=== PATIENT | male | born 1955 | race Caucasian/White ===

== ENCOUNTER → 2018-02-13 | Outpatient (CLI) | payer BC, MEDICARE ==
[~2018-02-13] MED LIST: AMBI5TAB PO; CLON1 PO; METH750T2 PO; PROP10TA26 PO
--- NOTE | 2018-02-14 07:43 | MG ---
cc: Allen Marquez MD EEG RECORD NUMBER [id number] INTERPRETATION: 8- 9 Hz activity, 20-50 microvolts. Low-amplitude beta in the frontal channels. Good anterior and posterior gradient. Increased fast frequencies, beta frequencies noted throughout the recording. Good electroencephalogram variability and reactivity. Reasonable driving with photic stimulation. Single lead electrocardiogram showing sinus rhythm. IMPRESSION: Normal awake EEG with increased beta frequencies likely medication effect. Clinical correlation. Allen Marquez MD MG/SA , 08:57 PM , 09:12 PM
== END ==
LOC: HEEG 09:08
PROVIDERS: ATTEND Psychiatry & Neurology Neurology
DX: R56.9 Unspecified convulsions (principal)
CPT/HCPCS: 95819

== ENCOUNTER 2018-03-12 17:28 | Emergency (ER) | payer MEDICARE, OTHER ==
[~2018-03-12] VITALS: Ht 185.4 cm; Wt 113.0 kg
[2018-03-12 17:47] VITALS: BP 136/108; PULSE 100; RESP 18; TEMP 96.6; O2SAT 95
[2018-03-12 18:30] VITALS: BP 162/85; PULSE 90; RESP 20; TEMP 97.9; O2SAT 95
--- NOTE | 2018-03-12 18:31 | PD ---
HPI Chief Complaint: Psychiatric Symptoms Time Seen by Provider: 17:52 Travel History International Travel<30 days: No Contact w/Intl Traveler<30days: No Traveled to known affect area: No History of Present Illness HPI 62-year-old male that presents to the ED for evaluation of Jarvis act. Patient was Jarvis acted by police after apparently his brother and cousin called the police stating that the patient was saying his suicidal statements. He has a history of this in the past. Per patient this is related to his alcohol. Per patient he is very vociferous and "passionate "speaker. Denies any urinary or bowel movement issues. Denies any other medical issues at this time. He does state that he has a history of seizures and neck problems for which she is following up with a neurologist. He denies any pain at this time. Per patient nothing strongly he needs to go home. She denies any homicidal or suicidal ideation. He states that he would not hurt anybody. Denies any drugs but does have a history of alcohol. He has been here with similar presentation in the past per her medical records. History is a little bit hard to obtain as patient does appear to get very agitated and appears to be intoxicated. Symptoms appear to have worsened today per patient as he called his causing a brother to "tell them a piece of his mind ". PFSH Past Medical History Blood Disorders: No Anxiety: Yes Depression: Yes Cancer: No Cardiovascular Problems: Yes Endocrine: No Fibromyalgia: Yes Immune Disorder: No Psychiatric: Yes ?: Not Past Surgical History Abdominal Surgery: Yes (HERNIA REPAIR) Cardiac Surgery: No Oral Surgery: Yes (TONSILLECTOMY) Thoracic Surgery: No Tonsillectomy: Yes Other Surgery: Yes (RIGHT SALIVARY GLAND REMOVED) Social History Alcohol Use: Yes (12 PK/DAY) Tobacco Use: Yes (3/4 PPD) Substance Use: No Allergies-Medications (Allergen,Severity, Reaction): Coded Allergies: ibuprofen (Verified Allergy, Intermediate, RASH, 03/12/18) No Known Allergies (Verified Allergy, Unknown, 03/12/18) Reported Meds & Prescriptions Reported Meds & Active Scripts Active Robaxin (Methocarbamol) 750 Mg Tab 750 Mg PO QIDPRN Reported Inderal (Propranolol HCl) 10 Mg Tab 0 PO TID UNKNOWN DOSE Klonopin (Clonazepam) 1 Mg Tab 1 Mg PO TID Ambien (Zolpidem Tartrate) 5 Mg Tab 0 PO HS UNKNOWN DOSE Review of Systems ROS Limitations: Intoxication Except as stated in HPI: all other systems reviewed are Neg Physical Exam Exam Limitations: Intoxication Narrative GENERAL: SKIN: Warm and dry. HEAD: Atraumatic. Normocephalic. EYES: Pupils equal and round. No scleral icterus. No injection or drainage. ENT: No nasal bleeding or discharge. Mucous membranes pink and moist. Tongue is midline. No uvula deviation. NECK: Trachea midline. No JVD. CARDIOVASCULAR: Regular rate and rhythm. No murmurs, S3, S4. RESPIRATORY: No accessory muscle use. Clear to auscultation. Breath sounds equal bilaterally. GASTROINTESTINAL: Abdomen soft, non-tender, nondistended. Hepatic and splenic margins not palpable. MUSCULOSKELETAL: Extremities without clubbing, cyanosis, or edema. No obvious deformities. Full range of motion of the upper and lower extremities bilaterally. 2+ pulses bilaterally. NEUROLOGICAL: Awake and alert. No obvious cranial nerve deficits. Motor grossly within normal limits. Five out of 5 muscle strength in the arms and legs. Normal speech. PSYCHIATRIC: Intoxicated mood and affect; insight and judgment normal. Data Data Last Documented VS Vital Signs Date Time Temp Pulse Resp B/P (MAP) Pulse Ox O2 Delivery O2 Flow Rate FiO2 03/12/18 17:47 96.6 100 18 136/108 (117) 95 Orders Orders Complete Blood Count With Diff (03/12/18 17:39) Comprehensive Metabolic Panel (03/12/18 17:39) Thyroid Stimulating Hormone (03/12/18 17:39) Psych Screen (03/12/18 17:39) Drug Screen, Random Urine (03/12/18 17:39) Alcohol (Ethanol) (03/12/18 17:39) MDM Medical Decision Making Medical Screen Exam Complete: Yes Emergency Medical Condition: Yes Medical Record Reviewed: Yes Differential Diagnosis Depression versus suicidal ideation versus anxiety versus adjustment disorder versus mood disorder versus bipolar disorder versus schizophrenia versus paranoid disorder versus psychosis versus substance abuse versus alcohol abuse versus alcohol induced psychosis versus homicidality addition versus cutting versus personality disorder Narrative Course 62-year-old male that presents to the ED for evaluation of Jarvis act. Patient was properly examined and was found to have signs and symptoms consistent appears to be psychiatric in nature and likely alcohol-related. Labs were drawn. Patient will be medically clear. Psych screen order. CIWA ordered. Mental health screening was discussed with the patient. Diagnosis Primary Impression: Substance induced mood disorder Sunil Martinez March 12, 2018 18:31
[2018-03-12] MEDS ORDERED: ONDANSETRON ODT 4 MG TAB PO PRN (18:45)
[2018-03-12] MEDS ORDERED: LORazepam 1 MG TAB PO PRN (18:45)
[2018-03-12] MEDS ORDERED: LORazepam 2 MG/ML VIAL IV PUSH PRN ×4 (18:45)
[2018-03-12] MEDS ORDERED: FLUMAZENIL 0.5 MG/5 ML VIAL IV PUSH PRN (18:45)
[2018-03-12] MEDS ORDERED: LORazepam 2 MG TAB PO PRN (18:45)
[2018-03-12 18:59] LABS: AUTOMATED NEUTROPHIL # 5.3 TH/MM3 (1.8-7.7); BASOPHIL # 0.1 TH/MM3 (0-0.2); BASOPHIL % 0.7 % (0.0-2.0); EOSINOPHIL # 0.1 TH/MM3 (0-0.4); EOSINOPHIL % 1.7 % (0.0-4.0); HEMATOCRIT 46.2 % (39.0-51.0); HEMOGLOBIN 15.8 GM/DL (13.0-17.0); LYMPH % 28.9 % (9.0-44.0); LYMPHOCYTE # 2.6 TH/MM3 (1.0-4.8); MEAN CORPUSCULAR HEMOGLOBIN 30.7 PG (27.0-34.0); MEAN CORPUSCULAR HGB CONC 34.1 % (32.0-36.0); MEAN PLATELET VOLUME 8.7 FL (7.0-11.0); MONO % 8.8 % (0.0-8.0); MONOCYTE # 0.8 TH/MM3 (0-0.9); NEUT % 59.9 % (16.0-70.0); PLATELET COUNT 243 TH/MM3 (150-450); RED BLOOD COUNT 5.14 MIL/MM3 (4.50-5.90); RED CELL DISTRIBUTION WIDTH 13.8 % (11.6-17.2); WHITE BLOOD COUNT 8.8 TH/MM3 (4.0-11.0)
[2018-03-12 19:22] LABS: ALBUMIN 3.7 GM/DL (3.4-5.0); AST (GOT) 23 U/L (15-37); BICARBONATE 24.4 MEQ/L (21.0-32.0); BLOOD UREA NITROGEN 10 MG/DL (7-18); CALCIUM 8.4 MG/DL (8.5-10.1); CHLORIDE 104 MEQ/L (98-107); GLOMERULAR FILTRATION RATE 61 ML/MIN (>89); GLUCOSE,RANDOM 99 MG/DL (74-106); SODIUM (NA) 140 MEQ/L (136-145)
[2018-03-12 19:34] LABS: ALKALINE PHOSPHATASE 46 U/L (45-117); ALT (GPT) 29 U/L (12-78); TOTAL BILIRUBIN ADULT 0.3 MG/DL (0.2-1.0); TOTAL PROTEIN 7.5 GM/DL (6.4-8.2)
[2018-03-12 22:12] VITALS: BP 125/58; PULSE 79; RESP 18; TEMP 97.4; O2SAT 97
[2018-03-12] MEDS: ACETAMINOPHEN 325 MG TAB PO PRN (23:04)
[2018-03-13 02:14] VITALS: BP 126/67; PULSE 71; RESP 18; TEMP 98.4; O2SAT 97
[2018-03-13 06:26] VITALS: BP 138/74; PULSE 73; RESP 18; TEMP 98.2; O2SAT 99
[2018-03-13] MEDS: ACETAMINOPHEN 325 MG TAB PO PRN (06:34)
[2018-03-13 11:20] VITALS: BP 144/81; PULSE 68; RESP 18; O2SAT 96
--- NOTE | 2018-03-13 13:24 | PD ---
Data Data Last Documented VS Vital Signs Date Time Temp Pulse Resp B/P (MAP) Pulse Ox O2 Delivery O2 Flow Rate FiO2 03/13/18 11:20 68 18 144/81 (102) 96 Room Air 03/13/18 06:26 98.2 Orders Orders Complete Blood Count With Diff (03/12/18 17:39) Comprehensive Metabolic Panel (03/12/18 17:39) Thyroid Stimulating Hormone (03/12/18 17:39) Psych Screen (03/12/18 17:39) Drug Screen, Random Urine (03/12/18 17:39) Alcohol (Ethanol) (03/12/18 17:39) Alcohol Withdrawal Asmt-Ciwa ONCE (03/12/18 18:31) Ondansetron Odt (Zofran Odt) (03/12/18 18:45) Acetaminophen (Tylenol) (03/12/18 18:45) Flumazenil Inj (Romazicon Inj) (03/12/18 18:45) Lorazepam (Ativan) (03/12/18 18:45) Lorazepam Inj (Ativan Inj) (03/12/18 18:45) Lorazepam (Ativan) (03/12/18 18:45) Lorazepam Inj (Ativan Inj) (03/12/18 18:45) Lorazepam Inj (Ativan Inj) (03/12/18 18:45) Lorazepam Inj (Ativan Inj) (03/12/18 18:45) Diet Regular Basic (03/13/18 Dinner) Diet Regular Basic (03/12/18 Dinner) Diet Regular Basic (03/13/18 Breakfast) Diet Regular Basic (03/13/18 Lunch) Labs Laboratory Tests Test 03/12/18 18:25 03/13/18 02:20 White Blood Count 8.8 TH/MM3 Red Blood Count 5.14 MIL/MM3 Hemoglobin 15.8 GM/DL Hematocrit 46.2 % Mean Corpuscular Volume 90.0 FL Mean Corpuscular Hemoglobin 30.7 PG Mean Corpuscular Hemoglobin Concent 34.1 % Red Cell Distribution Width 13.8 % Platelet Count 243 TH/MM3 Mean Platelet Volume 8.7 FL Neutrophils (%) (Auto) 59.9 % Lymphocytes (%) (Auto) 28.9 % Monocytes (%) (Auto) 8.8 % Eosinophils (%) (Auto) 1.7 % Basophils (%) (Auto) 0.7 % Neutrophils # (Auto) 5.3 TH/MM3 Lymphocytes # (Auto) 2.6 TH/MM3 Monocytes # (Auto) 0.8 TH/MM3 Eosinophils # (Auto) 0.1 TH/MM3 Basophils # (Auto) 0.1 TH/MM3 CBC Comment DIFF FINAL Differential Comment Blood Urea Nitrogen 10 MG/DL Creatinine 1.20 MG/DL Random Glucose 99 MG/DL Total Protein 7.5 GM/DL Albumin 3.7 GM/DL Calcium Level 8.4 MG/DL Alkaline Phosphatase 46 U/L Aspartate Amino Transf (AST/SGOT) 23 U/L Alanine Aminotransferase (ALT/SGPT) 29 U/L Total Bilirubin 0.3 MG/DL Sodium Level 140 MEQ/L Potassium Level 3.6 MEQ/L Chloride Level 104 MEQ/L Carbon Dioxide Level 24.4 MEQ/L Anion Gap 12 MEQ/L Estimat Glomerular Filtration Rate 61 ML/MIN Thyroid Stimulating Hormone 3rd Gen 0.855 uIU/ML Ethyl Alcohol Level 170 MG/DL Urine Opiates Screen POS Urine Barbiturates Screen NEG Urine Amphetamines Screen NEG Urine Benzodiazepines Screen NEG Urine Cocaine Screen POS Urine Cannabinoids Screen NEG MDM Supervised Visit with LISSA: Yes Narrative Course 62-year-old man, brought under a [employer] act. Patient states her speaking with his Brother [employer] for statements that he may. Denies being suicidal at any point. Does drink alcohol. Was seen by KAVIN Becker with psychiatry. Recommends Jarvis act lift. I personally evaluated the patient and concur with her assessment. I signed a release to [employer]. Patient will be discharged for outpatient follow-up. Diagnosis Primary Impression: Substance induced mood disorder Patient Instructions: General Instructions Additional Instruction: Follow-up with outpatient treatment resources as discussed. Limit alcohol intake. Return to the emergency department for any new or worsening symptoms. Med/Other Pt SpecificInfo: No Change to Meds Disposition: 01 DISCHARGE HOME Condition: Stable Yuri Pereira MD March 13, 2018 13:24
--- NOTE | 2018-03-13 13:53 | PD ---
History of Present Illness Chief Complaint: Psychiatric Symptoms Time Seen by Provider: 12:00 Travel History International Travel<30 Days: No Contact w/Intl Traveler<30days: No Known affected area: No Legal Status Legal Status: Jarvis Act Jarvis Act Signed By: Kylie Baumann Jarvis Act Comment: 2017 @ 2450 History of Present Illness: This is a 62-year-old male who presents under a Jarvis act to this facility for reportedly making suicidal statements to his krhtmat-lj-gro and cousin. Patient is known to this facility and has been seen on multiple occasions for EtOH intoxication. His last visit for suicidal ideation and EtOH was in April 2010 in the story sounded extremely similar to this occasion. Reviewed electronic medical record, labs, discuss case with staff. Patient's toxicology screen positive for cocaine with a 0.170 BAL. Patient was evaluated in his room and J pod. He was observed ambulating around room without difficulty. He is awake, alert, and oriented 4. His speech is clear, logical , and organized. He is somewhat hard of hearing. There is no indication of internal stimulation nor is there any thought blocking present. He denies being suicidal, homicidal, having auditory or visual hallucinations. I can elicit no delusional material. Patient admits to consuming alcohol last night and reports that he had "words with my brother". He states that he called him to give him a "piece of his mind" he states that they do not get along. Patient reports "I was running my mouth and sending him attacks". Patient denies any previous suicidal attempts. He lives alone and a mobile home and receives disability. He reports that he does have some friends who look in on him from time to time. PFSH Past Medical History Blood Disorders: No Anxiety: Yes Depression: Yes Cancer: No Cardiovascular Problems: Yes Endocrine: No Fibromyalgia: Yes Immune Disorder: No Psychiatric: Yes ?: Not Past Surgical History Abdominal Surgery: Yes (HERNIA REPAIR) Cardiac Surgery: No Oral Surgery: Yes (TONSILLECTOMY) Thoracic Surgery: No Tonsillectomy: Yes Other Surgery: Yes (RIGHT SALIVARY GLAND REMOVED) Psychiatric History Psychiatric History Polysubstance abuse Hx Psychiatric Treatment: ETOH INTOXICATION, VIOLENCE, SUICIDAL History of Inpatient Treatment: Yes Guns or firearms in home: No Social History Lives alone in a mobile home but reports that he has friends who look in on time to time. Hx Alcohol Use: Yes (12 PK/DAY) Hx Tobacco Use: Yes (3/4 PPD) Hx Substance Use: No Substance Use Type: Alcohol, Cocaine Other Substances Used: UNKNOWN Hx of Substance Use Treatment: No Allergies-Medications (Allergen,Severity, Reaction): Coded Allergies: ibuprofen (Verified Allergy, Intermediate, RASH, 03/12/18) No Known Allergies (Verified Allergy, Unknown, 03/12/18) Reported Meds & Prescriptions Reported Meds & Active Scripts Active Mental Status Examination Appearance: Appropriate Consciousness: Alert Orientation: x4 Motor Activity: Normal gait Speech: Unremarkable Language: Adequate Fund of Knowledge: Adequate Attention and Concentration: Adequate Memory: Unremarkable Mood: Appropriate, Good Affect: Appropriate, Euthymic Thought Process & Associations: Intact Thought Content: Appropriate Hallucination Type: None Delusion Type: None Suicidal Ideation: No Suicidal Plan: No Suicidal Intention: No Homicidal Ideation: No Homicidal Plan: No Homicidal Intention: No Insight: Adequate Judgment: Adequate MDM Medical Decision Making Medical Record Reviewed: Yes Assessment/Plan This is a 62-year-old male who presents under Jarvis act to this facility for reportedly making suicidal statements to family members. Upon examination this morning patient was found to be awake, alert, and oriented 4. His speech is clear, logical, and organized. There is no indication of internal stimulation or thought blocking present he denies feeling suicidal, homicidal, experiencing auditory or visual hallucinations. He appears in no distress at this time. He does report that he has a temp to us relationship with his brother and after consuming alcohol last night decided to call him and "give him a piece of my mind". Patient had a similar episode in 2009. He denies any previous suicide attempts. At this point patient does not meet Jarvis act criteria. I consulted with Dr. candelaria, ED physician who also assessed the patient and concurs with my assessment. His Jarvis act has been lifted. Patient will be discharged with instructions to follow-up at [facility] as needed. Patient will be advised to return to this facility should his condition worsen. Orders Orders Complete Blood Count With Diff (03/12/18 17:39) Comprehensive Metabolic Panel (03/12/18 17:39) Thyroid Stimulating Hormone (03/12/18 17:39) Psych Screen (03/12/18 17:39) Drug Screen, Random Urine (03/12/18 17:39) Alcohol (Ethanol) (03/12/18 17:39) Alcohol Withdrawal Asmt-Ciwa ONCE (03/12/18 18:31) Ondansetron Odt (Zofran Odt) (03/12/18 18:45) Acetaminophen (Tylenol) (03/12/18 18:45) Flumazenil Inj (Romazicon Inj) (03/12/18 18:45) Lorazepam (Ativan) (03/12/18 18:45) Lorazepam Inj (Ativan Inj) (03/12/18 18:45) Lorazepam (Ativan) (03/12/18 18:45) Lorazepam Inj (Ativan Inj) (03/12/18 18:45) Lorazepam Inj (Ativan Inj) (03/12/18 18:45) Lorazepam Inj (Ativan Inj) (03/12/18 18:45) Diet Regular Basic (03/13/18 Dinner) Diet Regular Basic (03/12/18 Dinner) Diet Regular Basic (03/13/18 Breakfast) Diet Regular Basic (03/13/18 Lunch) Ed Discharge Order (03/13/18 13:24) Results Vital Signs Date Time Temp Pulse Resp B/P (MAP) Pulse Ox O2 Delivery O2 Flow Rate FiO2 03/13/18 11:20 68 18 144/81 (102) 96 Room Air 03/13/18 06:26 98.2 73 18 138/74 (95) 99 Room Air 03/13/18 02:14 98.4 71 18 126/67 (86) 97 Room Air 03/12/18 22:12 97.4 79 18 125/58 (80) 97 Room Air 03/12/18 18:30 97.9 90 20 162/85 (110) 95 Room Air 03/12/18 17:47 96.6 100 18 136/108 (117) 95 Laboratory Tests Test 03/12/18 18:25 03/13/18 02:20 White Blood Count 8.8 Red Blood Count 5.14 Hemoglobin 15.8 Hematocrit 46.2 Mean Corpuscular Volume 90.0 Mean Corpuscular Hemoglobin 30.7 Mean Corpuscular Hemoglobin Concent 34.1 Red Cell Distribution Width 13.8 Platelet Count 243 Mean Platelet Volume 8.7 Neutrophils (%) (Auto) 59.9 Lymphocytes (%) (Auto) 28.9 Monocytes (%) (Auto) 8.8 Eosinophils (%) (Auto) 1.7 Basophils (%) (Auto) 0.7 Neutrophils # (Auto) 5.3 Lymphocytes # (Auto) 2.6 Monocytes # (Auto) 0.8 Eosinophils # (Auto) 0.1 Basophils # (Auto) 0.1 CBC Comment DIFF FINAL Differential Comment Blood Urea Nitrogen 10 Creatinine 1.20 Random Glucose 99 Total Protein 7.5 Albumin 3.7 Calcium Level 8.4 Alkaline Phosphatase 46 Aspartate Amino Transf (AST/SGOT) 23 Alanine Aminotransferase (ALT/SGPT) 29 Total Bilirubin 0.3 Sodium Level 140 Potassium Level 3.6 Chloride Level 104 Carbon Dioxide Level 24.4 Anion Gap 12 Estimat Glomerular Filtration Rate 61 Thyroid Stimulating Hormone 3rd Gen 0.855 Ethyl Alcohol Level 170 Urine Opiates Screen POS Urine Barbiturates Screen NEG Urine Amphetamines Screen NEG Urine Benzodiazepines Screen NEG Urine Cocaine Screen POS Urine Cannabinoids Screen NEG Diagnosis Primary Impression: Substance induced mood disorder Psychiatrically Cleared: Yes Departure Forms: Tests/Procedures Patient Instructions: General Instructions Additional Instructions: Follow-up with outpatient treatment resources as discussed. Limit alcohol intake. Return to the emergency department for any new or worsening symptoms. Disposition: 01 DISCHARGE HOME Condition: Stable Naye Cm March 13, 2018 13:53
== END 2018-03-13 13:45 | disposition home or self-care (01) ==
LOC: NEPJ 17:28
DX: F19.94 Other psychoactive substance use, unspecified with psychoactive substance-induced mood disorder (principal); F17.200 Nicotine dependence, unspecified, uncomplicated; F32.9 Major depressive disorder, single episode, unspecified; F41.9 Anxiety disorder, unspecified; Z79.899 Other long term (current) drug therapy
CPT/HCPCS: 80053; 80307; 84443; 85025; 99283